=== PATIENT | male | born 1970 | race Caucasian/White ===

== ENCOUNTER 2025-03-14 14:19 | Emergency (ER) | payer OTHER, SELFPAY ==
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
[2025-03-14 14:31] VITALS: BP 147/97; BP 280/100; PULSE 100; PULSE 136; RESP 18; TEMP 36.8; O2SAT 96; BMI 35.7
[2025-03-14 15:28] VITALS: BP 135/73; PULSE 97; RESP 14; TEMP 36.8; O2SAT 97
--- OUTSIDE RECORDS SUMMARY | 2025-03-14 15:29 | XMS_ITS | Clinical Summary ---
Author Organization [facility] Address [address] [place] [address] Care Team Providers Care Sandwich Peddler Name Role Phone Cara Su Primary Care Provider +1- [phone] Allergies No known active allergies Medications No known medications Active Problems Problem Noted Date Diagnosed Date Right wrist pain 02/14/2021 Social History Tobacco Use Types Packs/Day Years Used Date Smoking Tobacco: Former Smokeless Tobacco: Never Sex and Gender Information Value Date Recorded Sex Assigned at Not on file Legal Sex Male 4:00 PM EDT Gender Identity Not on file Sexual Orientation Not on file Plan of Treatment Health Maintenance Due Date Last Done Comments Cologuard 1968 Colon Cancer Screening 1968 Colonoscopy 1968 FOBT / Fit Test 1968 HIV Screening 1968 Sigmoidoscopy 1968 Hepatitis B Vaccines (1 of 3 - 19+ 3-dose series) 08/28 DTaP,Tdap,and Td Vaccines (1 - Tdap) 1990 Pneumococcal Vaccine: 50+ Years (1 of 1 - PCV) 018 Zoster Vaccines (1 of 2) 2018 Alcohol/Substance Use Screening 10/27/2024 Influenza Vaccine (Season Ended) 2025 RSV Vaccine (60+ years old a nd patients) (1 - 1-dose 75+ series) 2043 Insurance [facility] FAMILY Care Teams Sandwich Peddler Relationship Specialty Start Date End Date Cara Su [address] [place] [id number] PCP - General 01/15/21
--- OUTSIDE RECORDS SUMMARY | 2025-03-14 15:29 | XMS_ITS | Referral Summary ---
Author Organization [facility] Address [address] [place] [address] Care Team Providers Care Air Antisubmarine Officer Name Role Phone Cara Su Primary Care Provider +1- [phone] Allergies No known active allergies Medications No [...] Orientation Not on file Plan of Treatment Not on file Insurance [facility] FAMILY Care Teams Air Antisubmarine Officer Relationship Specialty Start Date End Date Cara Su [address] [place] [id number] PCP - General 01/15/21
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
[2025-03-14 17:18] VITALS: BP 153/86; PULSE 81; RESP 19; TEMP 36.2; O2SAT 95
[2025-03-14] MEDS: Ibuprofen 600 MG TABLET PO (17:29)
[2025-03-14 17:30] VITALS: BP 153/86; PULSE 81; RESP 19; TEMP 36.2; O2SAT 95
== END 2025-03-14 17:31 | disposition home or self-care (01) ==
PROVIDERS: Emergency Provider Emergency Medicine
DX: S09.90XA Unspecified injury of head, initial encounter (principal); S00.511A Abrasion of lip, initial encounter; V23.49XA Other motorcycle driver injured in collision with car, pick-up truck or van in traffic accident, initial encounter; R04.0 Epistaxis; Y93.89 Activity, other specified; Y92.414 Local residential or business street as the place of occurrence of the external cause; Y99.9 Unspecified external cause status
CPT/HCPCS: 70450; 70486; 72072; 72125; 73070; 99284

== ENCOUNTER → 2025-03-14 14:55 | Outpatient (BNV) | payer OTHER, SELFPAY | PROVIDERS: Emergency Provider Emergency Medicine; Visit Provider Radiology Diagnostic Radiology | DX: M50.322 Other cervical disc degeneration at C5-C6 level (principal); S09.93XA Unspecified injury of face, initial encounter; G44.309 Post-traumatic headache, unspecified, not intractable; M54.6 Pain in thoracic spine; M25.521 Pain in right elbow | CPT/HCPCS: 70450; 70486; 72072; 72125; 73070 ==